=== PATIENT | female | born 1985 | race Caucasian/White ===

== ENCOUNTER 2016-10-17 07:40 | Inpatient (IN) | payer OTHER ==
[~2016-10-17] VITALS: Ht 152.4 cm; Wt 95.3 kg
[2016-10-17 08:37] LABS: HEMOGLOBIN 12.6 gm/dl (12.3-15.3); RED BLOOD COUNT 4.59 M/UL (4.00-5.10); WHITE BLOOD COUNT 13.9 K/UL (4.5-11.0)
[2016-10-18 03:40] LABS: HEMOGLOBIN 9.7 gm/dl (12.3-15.3)
== END 2016-10-19 14:14 | disposition home or self-care (01) | DRG 765 ==
LOC: GENOP 07:40 → OB 08:07
PROVIDERS: ADMIT Obstetrics & Gynecology
PROC: 0UN90ZZ Release Uterus, Open Approach (ICD-10-PCS; 2016-10-17)
PROC: 0TNB0ZZ Release Bladder, Open Approach (ICD-10-PCS; 2016-10-17)
PROC: 3E0R3CZ (ICD-10-PCS; 2016-10-17)
PROC: 3E0234Z Introduction of Serum, Toxoid and Vaccine into Muscle, Percutaneous Approach (ICD-10-PCS; 2016-10-17)
PROC: 10D00Z1 Extraction of Products of Conception, Low, Open Approach (ICD-10-PCS; principal; 2016-10-17 08:52)
DX: O34.211 Maternal care for low transverse scar from previous cesarean delivery (principal); Z68.41 Body mass index [BMI] 40.0-44.9, adult; N85.8 Other specified noninflammatory disorders of uterus; O99.62 Diseases of the digestive system complicating childbirth; K66.0 Peritoneal adhesions (postprocedural) (postinfection); N32.89 Other specified disorders of bladder; Z3A.37 37 weeks gestation of pregnancy; Z37.0 Single live birth; O99.214 Obesity complicating childbirth; E66.01 Morbid (severe) obesity due to excess calories; O09.213 Supervision of pregnancy with history of pre-term labor, third trimester; Z23 Encounter for immunization; Z80.41 Family history of malignant neoplasm of ovary; Z80.1 Family history of malignant neoplasm of trachea, bronchus and lung; Z82.5 Family history of asthma and other chronic lower respiratory diseases; Z82.49 Family history of ischemic heart disease and other diseases of the circulatory system; Z84.1 Family history of disorders of kidney and ureter; Z82.0 Family history of epilepsy and other diseases of the nervous system
CPT/HCPCS: 36415; 81001; 82800; 85014; 85018; 85025; 90715; C9113; J0690; J1885; J2274; J2405; J2590; J2765; J3430; J7120

== ENCOUNTER 2020-10-29 09:34 | Observation (INO) | payer OTHER ==
[~2020-10-29] VITALS: Ht 152.4 cm; Wt 92.5 kg
[~2020-10-29 09:34] MED LIST: PRENATAL TABLE1 EAC1 PO
[2020-10-29 10:39] LABS: HEMOGLOBIN 13.9 gm/dl (12.3-15.3); RED BLOOD COUNT 4.67 M/UL (4.00-5.10); WHITE BLOOD COUNT 8.6 K/UL (4.5-11.0)
[2020-10-29 11:09] LABS: BUN/CREATININE RATIO 17 (0-10)
[2020-10-29] MEDS ORDERED: DOCUSATE SODIU100 MG PO (13:37)
[2020-10-29] MEDS ORDERED: IBUPROFEN600 MG PO (13:37)
[2020-10-29] MEDS ORDERED: HYDROCODON-ACE1 EAC4 PO (13:37)
== END 2020-10-29 17:17 | disposition home or self-care (01) ==
LOC: GENOP 09:34 → OB 09:59
PROVIDERS: ADMIT Obstetrics & Gynecology
DX: O36.4XX0 Maternal care for intrauterine death, not applicable or unspecified (principal); Z20.822 Contact with and (suspected) exposure to COVID-19; Z3A.15 15 weeks gestation of pregnancy
CPT/HCPCS: 80053; 81001; 85025; 96374; 96375; 96376; C9113; G0378; J0595; J2590; U0002